=== PATIENT | female | born 1960 | race Caucasian/White ===

== ENCOUNTER 2016-12-06 05:39 | Day surgery (SDC) | payer OTHER ==
[~2016-12-06] VITALS: Ht 152.4 cm; Wt 81.2 kg
[2016-12-06] VITALS (9 sets, daily range): BP systolic 134–177; BP diastolic 62–88; PULSE 63–78; RESP 15–22; O2SAT 93–99
[~2016-12-06 05:39] MED LIST: BUSP10TA2 PO; CELE200C PO; CHOL10008 PO; CITA20TA11 PO; CYAN500 PO; DICL75TA6 PO; ESTR1TAB24 PO; GABA-502 PO; IMI25 PO; LEVO50TA6 PO; MEDR2.5T7 PO; NABU500T PO; QUET50TA PO; TRAZ-115 PO
[2016-12-06] MEDS ORDERED: Lidocaine PF 1% 30 mL Inj ONE (05:40)
[2016-12-06] MEDS ORDERED: Succinylcholine Chloride 20 mg/mL 5 mL Inj ONE (05:40)
[2016-12-06] MEDS ORDERED: fentaNYL-PF 50 mCg/mL 2 mL Inj ONE (05:40)
[2016-12-06] MEDS ORDERED: Propofol 10,000 mCg/mL 20 mL Inj ONE (05:40)
[2016-12-06] MEDS ORDERED: Bupivacaine 0.5% 50 mL Inj ONE (05:40)
[2016-12-06] MEDS ORDERED: MetoCLOpramide 5 mg/mL 2 mL Inj ONE (05:40)
[2016-12-06] MEDS ORDERED: Dexamethasone 4 mg/mL Inj ONE (05:40)
[2016-12-06] MEDS ORDERED: Ondansetron 2 mg/mL 2 mL Inj ONE (05:40)
[2016-12-06] MEDS ORDERED: CeFAZolin 2 Gm/50 mL D5W IV Premix IV ONE (06:00)
[2016-12-06] MEDS ORDERED: CeFAZolin Inj 2 gm / 50mL D5W IV ONE (06:18)
[2016-12-06] MEDS: Lactated Ringer's 1,000 ML IV SCH ×2 (06:33→07:30)
--- NOTE | 2016-12-06 07:23 | PCM.HPANE ---
Patient Data Date of Service: Dec 06, 2016 Surgeon Admitting Provider: Attending Provider:Edward Moffett MD Primary Care Physician:Naya Guevara MD Other Provider:Chi Liao Anesthesia Reason for Visit Left Rotator Cuff Tear Ht/WT & BMI Height (Feet): 5 Height (Inches): 0 Weight (Kilograms): 81.2 Body Mass Index 35.00 Allergies Coded Allergies: No Known Allergies (Unverified , 12/01/16) Past Anesthesia History Anesthesia History: Denies:: Abnormal Airway, Anesthesia Reactions, Difficult Intubation, Fam Anesthesia Reaction, Fam Malignant Hypertherm, Malignant Hyperthermia Diabetes History Hx Diabetes?: No MRSA MRSA: No Medications Hypertension Medication: No Home Meds Incl Beta Courtney: No Reported Medications Trazodone 50 Mg [id number] Mg PO HS Ref 0 12/01/16 Quetiapine Fumarate (Seroquel)50 Mg [id number] Mg PO BID Ref 0 12/01/16 Diclofenac ER 75 Mg Hmrqgx24 Mg PO BID 12/01/16 Celecoxib (Celebrex)200 Mg [id number] Mg PO DAILY #30 CAPSULE Ref 0 12/01/16 Cholecalciferol (Vitamin D3) (Vitamin D3)1,000 Unit Tab.chew1,000 Unit PO DAILY 07/19/16 Gabapentin Unknown Strength [id number] Mg PO TID Ref 0 07/19/16 Cyanocobalamin (Vitamin B12)1,000 Mcg Tablet1,000 Mcg PO DAILY 03/22/15 Sumatriptan (Imitrex)25 Mg Bbrgwg59 Mg PO PRN PRN migraine MR q2hr, not to exceed 200mg/24 hr 03/22/15 Nabumetone 500 Mg [id number] Mg PO BID PRN For Pain 30 Days 03/22/15 Medroxyprogesterone 2.5 Mg Tablet2.5 Mg PO DAILY 03/22/15 Levothyroxine 50 Mcg Fkcrsu80 Mcg PO DAILY 30 Days Ref 0 03/22/15 Estradiol 1 Mg Tablet1 Mg PO DAILY 30 Days Ref 0 03/22/15 Citalopram 20 Mg [id number] Mg PO DAILY 30 Days Ref 0 03/22/15 Buspirone 10 Mg Ccppij56 Mg PO TID 30 Days Ref 0 03/22/15 Discontinued Reported Medications oxyCODONE-Acetaminophen 5-325 mg 1 Each Tablet1-2 Tab PO DAILY PRN For Pain Ref 0 03/22/15 History History of ENT Problems?: No HEENT History: Denies:: Abnormal Airway Cataracts Difficult Intubation Dysphagia Hearing Problem Sinus Problem TMJ Denture Type: Full- Upper Full- Lower Hx of Heart Problems?: Yes Cardiovascular History: Positive for:: Chest Pain (stress test 2013 - no ischemia, EF 60% by TTE, trace MR, nl LVSF) Edema (BILAT LOWER EXT) Heart Murmur (HX OF-NONE HEARD CURRENTLY ECHO 11/2013 EF 60-65%) Valvular Heart Disease (MOD-SEVERE TR with normal LVEF) Denies:: AICD Atrial Fibrillation Cardiac Surgery Congestive Heart Failure Coronary Artery Disease Hypertension Irregular Heartbeat Pacemaker Thrombophlebitis Other Cardiac History: mild pulmonary HTN Hx of Respiratory Problem?: Yes Respiratory History: Positive for:: Pneumonia (HX OF) Use of C-PAP Machine (CHRISTINA+ W/ CPAP) Denies:: Asthma COPD Chest Surgery Dyspnea Emphysema Hemoptysis Tuberculosis Hx Neurologic Problems?: Yes Neurological History: Positive for:: Dizziness Headaches Denies:: Alzheimer's Disease CVA Dementia Multiple Sclerosis Parkinson's Disease (ESSENTIAL TREMOR) Seizures TIA Hx of GI Problems?: Yes Gastrointestinal History: Positive for:: Cirrhosis Gastroesphageal Reflux Gastrointestinal Bleeding (10/2013 HOSPITALIZED/TRANSFUSED; h/o ulcers s/p repair) Heartburn Hiatal Hernia (S/P CANDI FUNDOPLICATION) Rectal Bleeding (HX COLON POLYPS) Denies:: Diverticulitis (DIVERTICULOSIS) Hepatitis Hx of Problems?: No Female Hx: Denies:: Currently Endometriosis Pelvic Inflammatory Problems with Breasts? Skin History: Denies:: History Skin Disorders? Pressure Ulcers Hx Musculoskeletal Problems?: Yes Musculoskeletal History: Positive for:: Back Injury (CHRONIC BACK PAIN) Musculoskeletal Trauma (S/P RT SHOULDER RPR LT SHOULDER INTERNAL DERANGEMENT=CURRENT PROBLEM) Osteoarthritis Denies:: Degenerative Joint Joint Replacement Systemic Lupus Hx of Psycho/Social Problems?: Yes Psycho Social History: Positive for:: Anxiety Hx Depression (HX OF SAD) Suicide Attempt ( TOOK EXTRA PILLS FOR PAIN ) Denies:: Bipolar Disorder Hx Surgeries?: Yes (BTL,CANDI FUNDOPLICATION,ORIF RT DISTAL RADIUS,RT SHOULDER RPR) Hx Any Other Health Problems?: Yes Other History: Positive for:: Hospitalization (GI BLEED) Thyroid Disease Denies:: Cancer Endocrine Disease History Blood Transfusions: Positive for:: Accept Blood Products? Blood Transfusions Denies:: Blood Transfuse Reaction Hx Diabetes: No Hx Alcohol Use: YesHx Substance Use: Yes (PAST / 10-15 years ago) Smoking Status: Former Smoker Have You Smoked inLast 12 mo: No Stop/Bang Treated for Sleep Apnea?: Yes Do You Have a CPAP Machine?: Yes S-Snoring: Do You Snore Loudly: No T-Tired: feel tired, fatigued: No O-Obsered: Observed not breath: No P-Blood Pressure: treated: No B- Body Mass Index > 35 kg/m2: Yes A- Age over 50: Yes N- Neck Large Circumference: No G- Gender Male: No CHRISTINA Total Score: 2 CHRISTINA Risk Assessment: High Risk, =/>3 Yes CHRISTINA Category 1: Yes Risk Assessment Category Category 1A: Patient has history of documented sleep apnea, and HAS NOT received any narcotic, sedative or anesthesia administration during this stay. Category 1B: Patient has history of documented sleep apnea, and HAS received any narcotic , sedative or anesthesia administration during this stay Category 2: Patient has SUSPECTED Obstructive Sleep Apnea, and HAS received any narcotic , sedative or anesthesia administration during this stay. Category 3: Patient has SUSPECTED Obstructive Sleep Apnea and HAS NOT received narcotic, sedative or anesthesia administration during this stay. Category 4: Outpatient in Procedural Areas with known sleep apnea or who screen positive for High Risk via the STOP/BANG questionnaire. Exam Exam Vital Signs Vital Signs Date Time Temp Pulse Resp B/P Pulse Ox O2 Delivery O2 Flow Rate FiO2 12/06/16 06:38 36.1 63 16 156/83 97 Room Air General Appearance: Alert, Oriented X3, Cooperative, No Acute Distress HEENT/AIRWAY: MP 3, Neck Movement (from, short, thick), Mouth Opening (3), Other (TMD<3, overbite 5mm) Lungs: Normal Air Movement Heart: Exam Unremarkable, Regular Rate/Rhythm, Normal S1, Normal S2, No Murmurs /Rubs/Gallops (appreciable by me) Additional Information lipoma above left clavicle extending cephalad of neck; Planned needle insertion site distal to this lipoma but will double check when performing block under ultrasound Meds/Labs/Diagnostics Admission Meds Current Medications Lactated Ringer's (Lr) 1,000 ml @ 120 mls/hr Q8H20M IV Last administered on 4/ 5/17at 06:33; Start 12/06/16 at 05:00; Stop 12/06/16 at 13:19 Diagnositcs 2013 TTE/Stress - no ischemia, mild MR, nl LVSF, EF 60% Plan Impression Patient chart reviewed, patient interviewed and anesthestic plan with risks, benefits, and alternatives discussed, and informed consent obtained. NPO Status: WATER AT 0400 ASA Physical Status: ASA2 Mod Systemic Disease Anesthetic Plan: GA Bene/Risks/Altern/Consents: Yes HP Complete Prior to Induction: Yes Other left brachial plexus block request by surgeon for post-operative pain management - plan supraclavicular approach under ultrasound-guidance; interscalene if anatomy is unfavorable Marshall Frey MD Dec 06, 2016 07:23
[2016-12-06] MEDS ORDERED: Ropivacaine-PF 0.5% 30 mL Inj INJ ONE (08:15)
[2016-12-06] MEDS ORDERED: Lactated Ringer's 1,000 ML IV SCH (08:53)
[2016-12-06] MEDS ORDERED: Lactated Ringer's 500 ML IV PRN (08:53)
[2016-12-06] MEDS ORDERED: Ondansetron 2 mg/mL 2 mL Inj IVPUSH PRN (08:55)
[2016-12-06] MEDS ORDERED: Phenylephrine 10,000 mCg/mL Inj IVPUSH PRN (08:55)
[2016-12-06] MEDS ORDERED: Dexamethasone 4 mg/mL Inj IVPUSH PRN (08:55)
[2016-12-06] MEDS ORDERED: MetoCLOpramide 5 mg/mL 2 mL Inj IVPUSH PRN (08:55)
[2016-12-06] MEDS ORDERED: fentaNYL-PF 50 mCg/mL 2 mL Inj IVPUSH PRN (08:55)
[2016-12-06] MEDS ORDERED: HYDROmorphone 1 mg/mL Inj IVPUSH PRN (08:55)
[2016-12-06] MEDS ORDERED: EPHEDrine Sulfate 50 mg/mL Inj IVPUSH PRN (08:55)
[2016-12-06] MEDS ORDERED: Ketorolac 15 mg/mL Inj IVPUSH ONE (09:50)
[2016-12-06] MEDS ORDERED: HYDROcodone-APAP 5-325 mg Tablet PO PRN (09:50)
--- NOTE | 2016-12-06 10:06 | PCM.ORTHOP ---
Orthopedic Operative Report Date of Service: Dec 06, 2016 Pre Operative Diagnosis Left shoulder full-thickness rotator cuff tear, impingement syndrome, acromioclavicular arthritis Post Operative Diagnosis Same Procedure Left shoulder arthroscopy, rotator cuff repair, subacromial decompression, distal clavicle excision Surgeon Surgeon: Edward Moffett MD Assistants: Savannah Barrett Indication for Procedure Left shoulder rotator cuff tear Findings Per dictation Details of Procedure INFANT AND TODDLER TEACHER SURGEON: During the operation, the services of physician operating room surgical technician were medically indicated and necessary to provide exposure of the operative site for the surgical procedure and to maintain the limb in a proper position to carry out the operation safely and efficiently. Without the qualified machine operator assistant being present, it would have extended the operative procedure and made the procedure technically more difficult to perform. INDICATIONS: The patient is Vonda Sullivan who is a 56-year-old female with a history of left shoulder rotator cuff tear who has failed conservative treatment. Upon inspection in preop, she had tenderness to her acromioclavicular joint as well as a positive crossarm adduction test. The risks , benefits, and alternatives of surgery were discussed with the patient. The risks included but were not limited to infection, bleeding, damage to vessels and nerves, loss of motion, continued pain, complications due to anesthesia including myocardial infarction, stroke, , etc. The patient stated understanding of the nature of the surgical procedure and gave written and verbal consent to proceed. PROCEDURE: The patient was brought into the operating room and placed supine on the operating room table. A supraclavicular block was placed in the left shoulder for postoperative pain management, followed by the administration of general anesthesia. . The patient was then placed into the lateral decubitus position with the right side up. An axillary role was placed and the legs were padded as necessary to avoid pressure points. The patient was maintained in position with a beanbag evacuation device. A thorough examination of the left shoulder under anesthesia was performed. The patient had 155 degrees of forward elevation and 120 degrees of abduction. In 90 degrees of abduction there was 90 degrees of external rotation and 70 degrees of internal rotation. The shoulder was stable to load-shift testing. The left upper extremity was then prepped and draped in the usual fashion. The arm was suspended with a well-padded sleeve with eight/ten pounds of balanced suspension in the arthroscopic position. Removing A standard posterior portal was made inferior and medial to the posterior corner of the acromion. The incision was made only through skin. The trocar was advanced through the soft tissue with a blunt-tipped obturator. This was inserted into the glenohumeral joint without difficulty. The 4 mm arthroscope was placed through the cannula and attached to the video monitor system. Inflow was achieved using the arthroscopic pump. The pressure was maintained at 35-40 mm of mercury throughout the entire procedure. Once the arthroscope confirmed visualization within the shoulder joint, it was advanced anteriorly into the rotator interval beneath the biceps tendon. A Wissinger heather was then used to create the anterior portal from inside-out. A second anterior stab wound incision was made only through skin and an anterior cannula was placed. A routine arthroscopic survey was begun. Survey: Subscapularis fraying, No biceps tenosynovitis noted, anterior labral fraying, [id number] rotator cuff tear, approximately 15 mm x 15 mm The arm was then placed in the bursoscopy position. Complex surgical procedure: This was an extremely complex surgical procedure which took approximately 30-40 % longer to complete than a standard repair. Without the use of a qualified physiotherapy assistant, this surgical procedure would have taken even considerably longer and been unable to be performed arthroscopically. Subscapularis tendon was frayed but attached, a shaver was used to debride the frayed edges. Ryanne procedure: Within the subacromial space there was marked fraying on the undersurface of the coracoacromial ligament consistent with impingement. A decision was thus made to proceed with arthroscopic subacromial decompression. Using an RF wand and a motorized shaver the coracoacromial ligament was recessed from the anterior acromial edge. An orientation trough was made along the lateral margin of the acromion, from the anterior corner back to the posterior margin of the AC joint. A sequential subacromial smoothing was carried out, removing approximately 3 mm of bone corresponding to the preoperative radiographs. Once completed, the AC joint capsule was opened. There was inferior spurring as well as synovitis and arthritic changes at the AC joint and a decision was made to proceed with distal clavicle excision. Using a motorized bur working initially from posteriorly and then anteriorly, the outer 10 mm of the distal clavicle were excised. The arthroscope was then positioned anteriorly within the AC resection site confirming an excellent level of resection. Single anchor triple loaded 5.5 mm peek Arthrex supraspinatus repair Attention was then directed to the rotator cuff repair. Using the motorized shaver from both the anterolateral portal and the posterior portal, the free edge of rotator cuff was debrided. The anatomic neck of the tuberosity was then gently abraded, using the motorized shaver and exposing good bone for healing. Via an accessory anterolateral portal, a triple-loaded anchor was inserted, with excellent fixation purchase. The three stitches were then transported across the rotator cuff using a shuttling technique, spacing the sutures equidistantly. Once the sutures were all passed, they were sequentially tied, using SMC knots and alternating half-hitches, which gave excellent loop and knot security. This reduced the rotator cuff back to the anatomic neck. A microfracture was then performed laterally on the tuberosity creating a crimson duvet to aid in tendon healing. The arm was placed through range of motion and the rotator cuff and humeral head moved well as a unit. There was no further evidence for impingement. The subacromial space was irrigated with an additional 500 mL lactated Ringer solution. Excess fluid was drained. The arm was placed through a range of motion and the rotator cuff and humeral head moved well as a unit. There was no further evidence of impingement. The subacromial space was irrigated with an additional liter of lactated Ringer s solution and excess fluid was drained. The arthroscopic portals were closed with #4-0 Nylon and Steri-Strips. A dry sterile dressing was applied, followed by a neutral rotation sling. The patient was awakened in the operating room and transported to the recovery room in satisfactory condition. The patient appeared to tolerate the procedure well. There were no complications noted. Nonweightbearing to affected upper extremity. Please leave sling on at all times. You may remove sling 3 times a day to move the elbow wrist and fingers. Do not move your shoulder except for pendulum exercises. Please keep the affected extremity elevated when possible. You may use ice and/or heat as needed for comfort. Follow-up in 2 weeks with me with 2-view xrays and for suture removal and Steri -Strip application, start physical therapy phase 1. Follow-up with me at 6 weeks, 12 weeks, 18 weeks with progression of physical therapy as per my protocol (please ask me for protocol if needed). Follow-up with me before full release at 5 months postop. Grafts, Implants: Implants-See Implant Record Complications There were no periprocedural complications identified. Condition Stable Anesthetic Administered: GA Catheters: None Output, Estimated Blood Loss: 5 Blood Admin during surgery: No Surgical Cast or Splint: Shoulder Immobilizer Surgical Specimen Removed: No Specimen sent to Pathology: No copies to: Edward Moffett MD, Christopher L MD Dec 06, 2016 10:06
--- NOTE | 2016-12-06 11:47 | PCM.ANEP2 ---
Post Anesthesia Evaluation ASA/CMS Post Anesthesia VS in Patient's Normal Range?: Yes Resp Stable; Airway Patent?: Yes CV Function & Hydration Stable: Yes Mental Status Recovered?: Yes Pain control Satisfactory?: Yes N/V Control Satisfactory?: Yes Marshall Frey MD Dec 06, 2016 11:47
--- NOTE | 2016-12-06 11:47 | PCM.ANEP1 ---
Post Anesthesia Phase 1 PACU Phase 1 Assessment Date of Service: Dec 06, 2016 Vital Signs Vital Signs Date Time Temp Pulse Resp B/P Pulse Ox O2 Delivery O2 Flow Rate FiO2 12/06/16 10:49 72 16 149/63 98 Nasal Cannula 1 12/06/16 10:30 71 16 177/79 98 Nasal Cannula 2 12/06/16 10:25 73 15 162/80 97 Nasal Cannula 2 12/06/16 10:20 36.1 73 17 139/74 97 Nasal Cannula 2 12/06/16 10:15 76 21 156/88 98 Nasal Cannula 4 12/06/16 10:10 76 22 155/78 99 Nasal Cannula 4 12/06/16 10:05 36.1 78 20 159/86 97 Simple Mask 8 12/06/16 06:38 36.1 63 16 156/83 97 Room Air Anesthetic Administered: GA Level of Alertness: Awake, talking SANTANA's with Equal Strength: No (appropriate motor deficits to left upper extremity s/p block) Pain: No Pain Scale Score: 0 Nausea or Vomiting: No Oxygen Delivery: Simple Mask Lungs: Normal Air Movement Marshall Frey MD Dec 06, 2016 11:47
== END 2016-12-06 23:59 | disposition home or self-care (01) ==
LOC: SAS 05:39
PROVIDERS: ATTEND Orthopaedic Surgery
PROC: 0RNK4ZZ Release Left Shoulder Joint, Percutaneous Endoscopic Approach (ICD-10-PCS; 2016-12-06)
PROC: 0PBB4ZZ Excision of Left Clavicle, Percutaneous Endoscopic Approach (ICD-10-PCS; 2016-12-06)
PROC: 0LM24ZZ Reattachment of Left Shoulder Tendon, Percutaneous Endoscopic Approach (ICD-10-PCS; principal; 2016-12-06 07:30)
DX: M75.122 Complete rotator cuff tear or rupture of left shoulder, not specified as traumatic (principal); M75.42 Impingement syndrome of left shoulder; M19.012 Primary osteoarthritis, left shoulder; G47.33 Obstructive sleep apnea (adult) (pediatric); K74.60 Unspecified cirrhosis of liver; K21.9 Gastro-esophageal reflux disease without esophagitis; Z87.891 Personal history of nicotine dependence